=== PATIENT | male | born 1935 | race Caucasian/White ===

== ENCOUNTER 2018-03-24 15:52 | Emergency (ER) | payer OTHER ==
[~2018-03-24] VITALS: Ht 175.3 cm; Wt 83.0 kg
[2018-03-24] MEDS ORDERED: SIMVASTATIN5 MG (16:25)
[2018-03-24] MEDS ORDERED: LISINOPRIL5 MG (16:26)
[2018-03-24] MEDS ORDERED: TOPROL XL25 M1 (16:26)
== END 2018-03-24 19:56 | disposition home or self-care (01) ==
LOC: ER 15:52
DX: L27.0 Generalized skin eruption due to drugs and medicaments taken internally (principal); T50.995S Adverse effect of other drugs, medicaments and biological substances, sequela